=== PATIENT | male | born 1995 | race Caucasian/White ===

== ENCOUNTER 2018-12-24 21:37 | Emergency (ER) | payer OTHER ==
[2015-03-14 23:23] VITALS: BP 120/68
[2018-12-24] MEDS ORDERED: CEFDINIR 125 MG/5 ML BOTTLE SUSP PO ONE (22:05)
== END 2018-12-24 22:37 ==
LOC: ED 21:37
DX: J02.9 Acute pharyngitis, unspecified (principal)
CPT/HCPCS: 99283; A9270